=== PATIENT | female | born 2000 | race Caucasian/White ===

== ENCOUNTER 2024-03-15 11:35 | Outpatient (CLI) | payer MEDICAID, SELFPAY ==
[2024-03-15 16:23] LABS: Chlamydia DNA Amplified* NOT DETECTED (No Detected); GC DNA Amplified* NOT DETECTED (No Detected)
== END 2024-03-15 11:36 | disposition home or self-care (01) ==
PROVIDERS: Visit Provider Obstetrics & Gynecology
DX: Z11.3 Encounter for screening for infections with a predominantly sexual mode of transmission (principal); Z12.4 Encounter for screening for malignant neoplasm of cervix
CPT/HCPCS: 87491; 87591; 87624; 87625; 88141; 88142